=== PATIENT | male | born 1935 | race Caucasian/White ===

== ENCOUNTER 2016-11-21 22:12 | Emergency (ER) | payer OTHER ==
[~2016-11-21] VITALS: Ht 172.7 cm; Wt 75.3 kg
[2016-11-21 23:10] VITALS: BP_SYST 113
--- NOTE | 2016-11-21 23:10 | NUR ---
PT AMBULATORY TO BED 2
--- NOTE | 2016-11-21 23:15 | NUR ---
Pt states having redness to chest area and swelling of lips since earlier this evening at 1999. Pt states he was having dinner when symptoms occurred. Pt denies SOB or difficulty breathing at this time. Diffuse redness noted to upper area of chest, pt states having itching sensation to redness area. Pt denies any other complaints.
--- NOTE | 2016-11-21 23:20 | NUR ---
ER Dr. Martinez at bedside examining patient.
[2016-11-21] MEDS ORDERED: DIPHENHYDRAMINE INJ 50 MG/ML VIAL IVP ONE (23:30)
[2016-11-21] MEDS ORDERED: methylPREDNISolone SOD SUCC/PF 62.5 MG/ML VIAL IVP ONE (23:30)
--- NOTE | 2016-11-22 00:15 | NUR ---
# 22 gauge angiocath placed to R forearm. Use of asceptic technique. Blood return noted. Flushed with 10 cc of normal saline. No evidence of infiltration noted. Patient tolerated well.
--- NOTE | 2016-11-22 00:30 | NUR ---
Scanner was not working. Allergies verified at bedside prior to administration of medications. Correct patient, time, dose, route, medication, and documentation verified at bedside.
--- NOTE | 2016-11-22 01:34 | NUR ---
Pt stable. no signs of distress noted. Will continue to monitor pt.
[2016-11-22 02:47] VITALS: BP_SYST 118
--- NOTE | 2016-11-22 02:47 | NUR ---
Patient given written and verbal discharge instructions and verbalizes understanding. ER MD discussed with patient the results and treatment provided. Patient in stable condition. ID arm band removed. IV catheter removed intact and dressing applied, no active bleeding. No Rx given. Patient educated on pain management and to follow up with PMD in 2 days. Pain Scale 0/10 Opportunity for questions provided and answered.
== END 2016-11-22 02:47 | disposition home or self-care (01) ==
LOC: SED 22:12
DX: T63.441A Toxic effect of venom of bees, accidental (unintentional), initial encounter (principal); R22.0 Localized swelling, mass and lump, head; Z86.73 Personal history of transient ischemic attack (TIA), and cerebral infarction without residual deficits; Z88.0 Allergy status to penicillin; Z96.652 Presence of left artificial knee joint; Y92.89 Other specified places as the place of occurrence of the external cause
CPT/HCPCS: 96374; 96375; 99284; J1200; J2930

== ENCOUNTER 2020-07-14 19:54 | Inpatient (IN) | payer OTHER, SELFPAY ==
[~2020-07-14] VITALS: Ht 172.7 cm; Wt 72.6 kg
[~2020-07-14 19:54] MED LIST: ALFU10TA10 PO; APIX5TAB4 PO; DOXY100C2 PO; FURO-150 PO; LORA10TA7 PO; PRO40 PO
--- NOTE | 2020-07-14 20:00 | NUR ---
Patient to ER bed 2 to gown for evaluation. Side rails up.
[2020-07-14 20:13] VITALS: BP_SYST 144
--- NOTE | 2020-07-14 20:35 | NUR ---
Pt BIB son from home c/o increasing confusion, agitation since last admission in April. Per son pt is also experiencing paranoid delusions and VH that there is a man in his house. Pt has been observed by family to be keeping knives under his pillow. Pt is alert and oriented x4, calm, cooperative. Pt denies any physical complaints at this time. Pt noted to have a resting HR in mid 50s and became alyssa to low 40s. EKG ordered.
--- NOTE | 2020-07-14 20:41 | NUR ---
EKG performed at by Ryan WILSON. Physician given copy of EKG for review.
[2020-07-14 21:43] LABS: BASOPHILS % (AUTO) 0.5 % (0.0-2.0); EOSINOPHILS % (AUTO) 0.6 % (0.0-4.0); HEMOGLOBIN 11.2 g/dL (14.0-18.0); LYMPHOCYTES # (AUTO) 0.9 K/uL (1.0-5.5); LYMPHOCYTES % (AUTO) 21.6 % (20.5-51.5); MEAN CORPUSCULAR HEMOGLOBIN 30 pg (27-31); MEAN CORPUSCULAR HGB CONC 33 % (32-36); MEAN CORPUSCULAR VOLUME 90 fL (79.0-98.0); MONOCYTES # (AUTO) 0.6 K/uL (0.0-1.0); MONOCYTES % (AUTO) 13.7 % (1.7-9.3); NEUTROPHILS # (AUTO) 2.6 K/uL (1.8-7.7); NEUTROPHILS % (AUTO) 63.6 % (40.0-70.0); PLATELET COUNT (AUTO) 182 K/uL (130-430); RED BLOOD CELL COUNT(AUTO) 3.76 MIL/uL (4.2-6.2); RED CELL DISTRIBUTION WIDTH 15.5 % (9.0-15.0); WHITE BLOOD COUNT (AUTO) 4.2 K/uL (4.8-10.8)
--- NOTE | 2020-07-14 21:45 | NUR ---
Pt sitting up at bedside to give urine sample.
[2020-07-14 21:50] LABS: ANION GAP 9 (5-15); CALCIUM 8.5 mg/dL (8.4-11.0); CHLORIDE 99 mmol/L (98-107); CREATININE 0.66 mg/dL (0.55-1.30); GLUCOSE 104 mg/dL (70-99); POTASSIUM 4.3 mmol/L (3.5-5.1); SODIUM SERUM 134 mmol/L (136-145); UREA NITROGEN, BLOOD 13 mg/dL (8-21)
[2020-07-14 21:55] LABS: CHOLESTEROL 107 mg/dL (<200); HDL CHOLESTEROL 50 mg/dL (>45); LDL CHOLESTEROL 62 mg/dL (<100); TRIGLYCERIDES 20 mg/dL (30-150)
[2020-07-14 21:58] LABS: BILIRUBIN,URINE NEGATIVE (NEGATIVE); BLOOD, URINE NEGATIVE (NEGATIVE); CLARITY/URINE CLEAR (CLEAR); COLOR,URINE YELLOW (YELLOW); GLUCOSE,URINE NEGATIVE (NEGATIVE); KETONES,URINE NEGATIVE (NEGATIVE); LEUKOCYTE ESTERASE ,URINE NEGATIVE (NEGATIVE); NITRITE, URINE NEGATIVE (NEGATIVE); PROTEIN URINE NEGATIVE (NEGATIVE); UROBILINOGEN,URINE 0.2 (0.2-1.0)
[2020-07-14 22:05] LABS: ALANINE AMINOTRANSFERASE 25 U/L (12-78); ALBUMIN 3.5 g/dL (3.4-4.8); ASPARTATE AMINOTRANSFERASE 25 U/L (10-37); TOTAL BILIRUBIN 0.7 mg/dL (0.0-1.0)
[2020-07-14 22:13] LABS: ACETAMINOPHEN < 1 ug/mL (1-30); ALCOHOL, BLOOD < 3 mg/dL (<10)
--- NOTE | 2020-07-14 22:45 | NUR ---
Pt resting comfortably in bed, son at bedside. NAD.
[2020-07-14 22:55] LABS: BARBITURATE, URINE NEGATIVE (NEG <=200); BENZODIAZEPINE, URINE NEGATIVE (NEG <=150); CANNABINOID, URINE NEGATIVE (NEG <=50); COCAINE, URINE NEGATIVE (NEG <=150); METHAMPHETAMINES SCREEN,URINE NEGATIVE (NEG <=500); OPIATE, URINE NEGATIVE (NEG <=100); PHENCYCLIDINE SCREEN,URINE NEGATIVE (NEG <=25); UR TRICYCLIC ANTIDEPRESSANTS NEGATIVE (NEG <=300); URINE AMPHETAMINE NEGATIVE (NEG <=500); URINE METHADONE NEGATIVE (NEG <=200); URINE OXYCODONE SCREEN NEGATIVE (NEG <=100); URINE PROPOXYPHENE SCREEN NEGATIVE (NEG <=300)
--- NOTE | 2020-07-15 | NUR ---
Pt remains in stable condition with family bedside for comfort and support
--- NOTE | 2020-07-15 01:00 | NUR ---
Attempted to consult [facility] for Psychiatric consultation, unable to reach. Will continue to make further attempt
--- NOTE | 2020-07-15 02:10 | NUR ---
Successful in reaching Psych consult by [facility].
--- NOTE | 2020-07-15 03:10 | NUR ---
Received call from Dr[facility] Isbell [facility]. Updated on patient condition. Pending call on telemed.
--- NOTE | 2020-07-15 03:20 | NUR ---
Psych consult completed with Dr. Isbell on telemed monitor.
--- NOTE | 2020-07-15 03:30 | NUR ---
Dr. Isbell on phone with pt son Bar for more information and update on POC.
--- NOTE | 2020-07-15 04:45 | NUR ---
Pt MARIA D to CT with
--- NOTE | 2020-07-15 04:52 | NUR ---
Pt back from CT.
[2020-07-15] MEDS ORDERED: HALOPERIDOL LACTATE 5 MG/ML VIAL IM ONE (05:15)
--- NOTE | 2020-07-15 05:35 | NUR ---
Pt son at bedside- updated on POC.
--- NOTE | 2020-07-15 06:30 | NUR ---
Pt resting comfortably in bed, respirations even and unlabored, NAD.
--- NOTE | 2020-07-15 07:20 | NUR ---
Report given to Evelin WILSON for continuity of care. Pt pending psych consult with Dr. Nunez.
--- NOTE | 2020-07-15 07:21 | NUR ---
Patient sleeping in [facility], son of patient at .
[2020-07-15] MEDS ORDERED: HYDR-3919 PO ×2 (07:39→07:42)
--- NOTE | 2020-07-15 09:12 | NUR ---
ER Dr. CALABRESE at bedside examining patient.
--- NOTE | 2020-07-15 09:25 | NUR ---
HOSPITAL BREAKFAST BROUGHT TO BS ON SAFETY TRAY.
--- NOTE | 2020-07-15 11:05 | NUR ---
ADMIT ORDERS FROM DR. RODRIGUEZ
--- NOTE | 2020-07-15 11:40 | NUR ---
Medication reconciliation completed with information provided by SON. Any prior medication reconciliation on file was reviewed and corrected.
--- NOTE | 2020-07-15 12:04 | NUR ---
Patient will be admitted to care of DR. RODRIGUEZ. Admitted to MS unit. Will go to room 121A. Belongings list completed. Complete and up to date summary report printed. SBAR report to be given at bedside with opportunity for questions.
--- NOTE | 2020-07-15 12:05 | NUR ---
Son of patient refusing to allow me to move patient to floor "until I speak to Ohmede". Notified charge and Dr. Antonio. Made son aware that all calls for psyche consult have gone unanswered.
--- NOTE | 2020-07-15 12:17 | NUR ---
Eliceo SORIANOregulated program manager made aware and informed me that Omede is unavailable.
--- NOTE | 2020-07-15 12:49 | NUR ---
KETTLE SKIMMER HERE TO SPEAK WITH PT AND PTS SON
--- NOTE | 2020-07-15 13:01 | NUR ---
Informed son of PT per Radha GRIFFIN stated that if son is not Power of Hop Farm Worker, we can not hold patient in ER.
--- NOTE | 2020-07-15 13:01 | NUR ---
Son of PT, Bar stated PT does not have a Power of Principal Cloud Architect "he is able to make own decision"
--- NOTE | 2020-07-15 13:01 | NUR ---
COREEN Ye at discussing hospital admission and family concerns with son of patient.
--- NOTE | 2020-07-15 13:15 | NUR ---
Beata Cartagena Sup. at BS to discuss family concerns.
--- NOTE | 2020-07-15 13:17 | NUR ---
Patient ambulatoryt to toilet.
--- NOTE | 2020-07-15 13:33 | NUR ---
ANDERS notes: CHIEF PSYCHOLOGIST met with patient and son (Bar) at bedside. Pt was asleep during the conversation. Bar verbalized frustrations on his father's care in the ED. He stated he did not want patient be moved around to the floor and just wants pt to be transferred to [facility]. Psych MD has been paged multiple times; ED is still awaiting for a call back from psych MD. Bar wanted to speak with patient experience who is currently unavailable. There is an admit order in place. Beata Allred is involved. SS will remain available.
--- NOTE | 2020-07-15 13:45 | NUR ---
Patient given hospital lunch on safety tray to BS. Patient awake and alert, sitting up in [facility]. Patient given hand wipes, per pt request.
--- NOTE | 2020-07-15 14:16 | NUR ---
ER Dr. Bell at bedside examining patient.
--- NOTE | 2020-07-15 14:22 | NUR ---
DR LYNNE SPEAKING WITH PTS SON
--- NOTE | 2020-07-15 15:01 | NUR ---
Tanna Joseph EMT at BS
--- NOTE | 2020-07-15 15:06 | NUR ---
SPOKE WITH SON AND EXPLAINED THAT PT CAN NOT GO TO [facility] OR [facility] DUE TO AGE/INSURANCE. SON WOULD LIKE FOR US TO TRY [facility].
--- NOTE | 2020-07-15 16:15 | NUR ---
Patient ambulatory to restroom. Patient speaking in full sentences.
--- NOTE | 2020-07-15 17:15 | NUR ---
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 Patient and son of patient discussing patients talents. Patient interacting son and appropriate.
--- NOTE | 2020-07-15 17:35 | NUR ---
Patient awake and speaking in full sentences. Hospital dinner safety tray brought to BS. Patient able to feed self, son of patient at the BS.
--- NOTE | 2020-07-15 17:45 | NUR ---
Patient placed on suicide precautions. Patient placed in room within close proximity to nurses' station for closer observation and monitoring. All clothing removed, placed in hospital gown. Metal detector wand used to further screen patient of any potential hazardous belongings. All belongings inventoried, placed in bags and removed from room. Metal detected in bilat ankles, left knee and right & left flank. Patients son reports penile implant and incontinence implant device and left knee hardware.
--- NOTE | 2020-07-15 19:01 | NUR ---
Report to Nat WILSON
--- NOTE | 2020-07-15 19:04 | NUR ---
Received report from STEVE Waters for continuation of care.
--- NOTE | 2020-07-15 19:16 | NUR ---
DO at bedside with patient. Patient resting quietly. No acute distress noted.
--- NOTE | 2020-07-15 20:43 | NUR ---
PT PLACED IN HOSPTIAL BED WITH CLEAN LINENS.
[2020-07-15] MEDS ORDERED: ALFUZOSIN HCL PO SCH (21:00)
--- NOTE | 2020-07-15 21:23 | NUR ---
SPOKE WITH DR. REEVES. PER MD ORDER, PT IS ABLE TO TAKE AT HOME MEDICATIONS. PT TAKING ELIQUIS 5MG PO. PT HOLDING LASIX UNTIL MORNING.
--- NOTE | 2020-07-15 22:31 | NUR ---
SPOKE WITH ANKIT BLAKE REGARDING POSSIBILITY OF DISCONTINUING HOLD. ANKIT BLAKE IS UNABLE TO DISCONTINUE HOLDS PER CONTRACT WITH [place].
--- NOTE | 2020-07-15 22:38 | NUR ---
PT AND SON GIVEN SANDWICHES AND FOOD TO EAT. PT ALERT AND ORIENTED, SPEAKING IN FULL SENTENCES, COOPERATIVE. NO SIGNS OF ACUTE DISTRESS. WILL CONTINUE TO MONITOR.
--- NOTE | 2020-07-15 23:49 | NUR ---
SPOKE WITH STEVE QUISPE FROM [facility] TO REPORT PATIENT INFORMATION. JOSE ENRIQUE STATES THEY WILL CALL BACK WITH AN ANSWER ABOUT ACCEPTING IN ABOUT 30 MINS. PT AND SON ARE UPDATED.
--- NOTE | 2020-07-16 00:37 | NUR ---
SPOKE WITH JOSE ENRIQUE FROM [facility], PT IS ACCEPTED AND HAS A BED AT FACILITY.
--- NOTE | 2020-07-16 00:51 | NUR ---
ETA FOR TRANSPORT 60-90MINS WITH [facility].
--- NOTE | 2020-07-16 01:01 | NUR ---
Patient to be transferred to [facility]. Is being transferred due to higher level of care. Receiving facility has accepting physician and available space. ER physician has signed transfer form. Patient or responsible green party has agreed to transfer and signed form. Patient belongings inventoried and will be sent with patient. Copy of nursing notes, lab reports, EKG, Physicians Orders and X-rays to be sent with patient. Report called to STEVE BRITO at receiving facility. Receiving physician is DR. REARDON. [facility] for [facility]. ETA is 0230.
--- NOTE | 2020-07-16 01:30 | NUR ---
SNEHA JIMENEZ RN FROM [facility] AN UPDATE ON ETA [phone].
--- NOTE | 2020-07-16 02:00 | NUR ---
PT AMBULATED TO RESTROOM WITH STEADY GAIT.
--- NOTE | 2020-07-16 02:10 | NUR ---
IV DISCONTINUED, BLEEDING CONTROLLED.
[2020-07-16 02:18] VITALS: BP_SYST 138
--- NOTE | 2020-07-16 02:18 | NUR ---
REPORT GIVEN TO [facility]/EXPORT SPECIALIST PRIOR TO TRANSPORT TO FACILITY.
[2020-07-16] MEDS ORDERED: APIXABAN 2.5 MG TABLET PO SCH (09:00)
[2020-07-16] MEDS ORDERED: FUROSEMIDE 20 MG TABLET PO SCH (09:00)
[2020-07-16] MEDS ORDERED: PANTOPRAZOLE SODIUM 40 MG TAB PO SCH (09:00)
== END 2020-07-16 02:18 | DRG 885 ==
LOC: SED 19:54 → SMU 07-15 11:27
PROVIDERS: ADMIT Internal Medicine Hospice and Palliative Medicine; ATTEND Internal Medicine Hospice and Palliative Medicine
DX: F22 Delusional disorders (principal); Z20.822 Contact with and (suspected) exposure to COVID-19; Z88.0 Allergy status to penicillin; Z91.041 Radiographic dye allergy status; Z79.899 Other long term (current) drug therapy
CPT/HCPCS: 36415; 70450-TC; 76376; 80053; 80061; 80307; 81003; 83036; 85025; 93005; G0480; G0481; G0482; J1630